=== PATIENT | female | born 1985 | race Caucasian/White ===

== ENCOUNTER 2016-05-25 11:25 | Emergency (ER) | payer OTHER ==
[~2016-05-25] VITALS: Ht 165.1 cm; Wt 81.6 kg
[~2016-05-25 11:25] MED LIST: ATARAX25 MG PO; BACTRIM DS 8001 TA1 PO; CYCLOBENZAPRINE10 MG PO; Elimite 5%60 GM T; KEFLEX500 MG PO; LOTRIMIN 1%15 GM PO; MEDROL DOSEPAK4 MG PO; MOTRIN800 MG PO; Motrin,Rufen800 MG PO; NO DAILY MEDS; NORCO 5-325 TA1 EACH PO; Orphenadrine C100 MG PO; PREDNICOT20 MG PO; ULTRAM50 MG PO
[2016-05-25 11:28] VITALS: BP 147/95
[2016-06-17] MEDS ORDERED: DOXYCYCLINE100 M3 PO (10:10)
[2016-06-17] MEDS ORDERED: PREDNISONE10 MG PO (10:10)
[2016-06-17] MEDS ORDERED: Peridex 473 ML473 ML PO (10:33)
[2016-06-19] MEDS ORDERED: IBU800 MG PO (07:35)
[2016-06-19] MEDS ORDERED: TYLENOL325 M1 PO (07:37)
== END 2016-05-25 13:58 | disposition home or self-care (01) ==
LOC: ED 11:25
DX: S22.42XD Multiple fractures of ribs, left side, subsequent encounter for fracture with routine healing (principal); F17.200 Nicotine dependence, unspecified, uncomplicated; F32.9 Major depressive disorder, single episode, unspecified; F41.9 Anxiety disorder, unspecified; Z88.2 Allergy status to sulfonamides; X58.XXXD Exposure to other specified factors, subsequent encounter

== ENCOUNTER 2016-08-11 02:39 | Emergency (ER) | payer OTHER ==
[~2016-08-11] VITALS: Ht 165.1 cm; Wt 79.4 kg
[~2016-08-11 02:39] MED LIST changes: +DOXYCYCLINE100 M3 PO; +IBU800 MG PO; +PREDNISONE10 MG PO; +Peridex 473 ML473 ML PO; +TYLENOL325 M1 PO
[2016-08-11 02:43] VITALS: BP 139/91
[2016-08-11] MEDS ORDERED: INDOMETHACIN50 MG PO (04:31)
[2016-08-11] MEDS ORDERED: VALIUM10 MG PO (04:31)
== END 2016-08-11 05:00 | disposition home or self-care (01) ==
LOC: ED 02:39
DX: M43.6 Torticollis (principal); F17.200 Nicotine dependence, unspecified, uncomplicated; F41.9 Anxiety disorder, unspecified; F32.9 Major depressive disorder, single episode, unspecified; Z88.2 Allergy status to sulfonamides

== ENCOUNTER 2016-08-22 13:19 | Emergency (ER) | payer OTHER ==
[~2016-08-22 13:19] MED LIST changes: +INDOMETHACIN50 MG PO; +VALIUM10 MG PO
[2016-08-22 13:29] VITALS: BP 157/87
[2016-08-22] MEDS ORDERED: NAPROSYN500 MG PO (13:35)
[2016-08-22] MEDS ORDERED: PENICILLIN VK500 MG PO (13:35)
[2016-08-22] MEDS ORDERED: Peridex 473 ML473 ML PO (13:35)
[2016-08-22] MEDS ORDERED: LIDOCAINE HCL100 M1 MM (13:35)
== END 2016-08-22 13:46 | disposition home or self-care (01) ==
LOC: ED 13:19
DX: K04.7 Periapical abscess without sinus (principal); R03.0 Elevated blood-pressure reading, without diagnosis of hypertension; F41.9 Anxiety disorder, unspecified; F32.9 Major depressive disorder, single episode, unspecified; F17.200 Nicotine dependence, unspecified, uncomplicated; Z88.2 Allergy status to sulfonamides

== ENCOUNTER 2017-04-30 15:12 | Emergency (ER) | payer OTHER ==
[~2017-04-30] VITALS: Wt 86.2 kg
[~2017-04-30 15:12] MED LIST changes: +LIDOCAINE HCL100 M1 MM; +NAPROSYN500 MG PO; +PENICILLIN VK500 MG PO
[2017-04-30 15:27] VITALS: BP 100/63
[2017-04-30] MEDS ORDERED: CEPHALEXIN500 M1 PO (15:41)
== END 2017-04-30 15:48 | disposition home or self-care (01) ==
LOC: ED 15:12
DX: S91.311A Laceration without foreign body, right foot, initial encounter (principal); Z88.2 Allergy status to sulfonamides; W25.XXXA Contact with sharp glass, initial encounter; Y93.89 Activity, other specified; Y92.89 Other specified places as the place of occurrence of the external cause; Y99.9 Unspecified external cause status

== ENCOUNTER 2017-06-14 15:35 | Emergency (ER) | payer OTHER ==
[~2017-06-14] VITALS: Wt 86.2 kg
[~2017-06-14 15:35] MED LIST changes: +CEPHALEXIN500 M1 PO
[2017-06-14 15:57] VITALS: BP 118/71
[2017-06-14 16:25] LABS: BILIRUBIN NEGATIVE (NEGATIVE); BLOOD 3+ (NEGATIVE); CLARITY SL CLOUDY (CLEAR); COLOR YELLOW (YELLOW); GLUCOSE NEGATIVE (NEGATIVE); KETONE TRACE (NEGATIVE); LEUKO ESTERASE NEGATIVE (NEGATIVE); NITRITE NEGATIVE (NEGATIVE); UROBILINOGEN 0.2 E.U./dl (0.2-1.0)
[2017-06-14 16:30] LABS: BASO # 0.1 10*3/uL (0.0-0.1); BASO % 0.6 % (0.0-1.0); EOS # 0.2 10*3/uL (0.0-0.4); EOS % 1.6 % (1.0-4.0); HEMATOCRIT 40.6 % (37.0-47.0); HEMOGLOBIN 13.1 g/dl (12.0-16.0); LYMPH # 3.1 10*3/uL (1.3-4.4); LYMPH % 24.3 % (27.0-41.0); MEAN CORPUSCULAR HGB 26.5 pg (27.0-31.0); MEAN CORPUSCULAR HGB CONC 32.3 g/dl (33.0-37.0); MONO # 0.6 10*3/uL (0.1-1.0); NEUT # 8.6 10*3/uL (2.3-7.9); NEUT % 68.1 % (47.0-73.0); PLATELET COUNT AUTOMATED 388 10*3/uL (130-400); RED BLOOD COUNT 4.95 10*6/uL (4.10-5.10); RED CELL DISTRI WIDTH 16.3 % (0-14.5); WHITE BLOOD COUNT 12.7 10*3/uL (4.8-10.8)
[2017-06-14 16:44] LABS: ALBUMIN 4.6 gm/dl (3.1-4.5); ALKALINE PHOSPHATASE 97 U/L (45-117); BUN 7 mg/dl (7-24); CHLORIDE 102 mmol/L (98-107); CREATININE 0.83 mg/dL (0.55-1.02); LIPASE 175 U/L (73-393); POTASSIUM 4.3 mmol/L (3.5-5.1); SGOT/AST 14 IU/L (3-35); SGPT/ALT 26 U/L (12-78); SODIUM 138 mmol/L (136-145); TOTAL PROTEIN 8.5 gm/dL (6.4-8.2)
[2017-06-14 16:46] LABS: BACTERIA 3+
[2017-06-14 16:47] LABS: EPITHELIAL CELLS 31-40; RBC 41-50 rbc/hpf (0-2)
== END 2017-06-14 18:22 | disposition home or self-care (01) ==
LOC: ED 15:35
PROVIDERS: Nurse Practitioner Family
DX: R10.11 Right upper quadrant pain (principal); F17.200 Nicotine dependence, unspecified, uncomplicated; Z88.2 Allergy status to sulfonamides

== ENCOUNTER → 2018-05-21 | Outpatient (CLI) | payer OTHER ==
[~2018-05-21] MED LIST changes: +OMEPRAZOLE40 MG PO
== END | disposition home or self-care (01) ==
LOC: US 05-11 10:30
DX: K76.0 Fatty (change of) liver, not elsewhere classified (principal); R10.84 Generalized abdominal pain

== ENCOUNTER → 2018-05-27 | Day surgery (SDC) | payer OTHER ==
[~2018-05-27] VITALS: Ht 165.1 cm; Wt 90.7 kg
--- NOTE | ~2018-05-27 | PROC NOTE ---
[place], [place] PROCEDURE NOTE NAME: JOHANA MARTINS [facility] #: [id number] UNIT #: [id number] ROOM: DOCTOR: KEAGAN LUI MD BIRTHDATE: [birth year] DOS: PROCEDURES: 1. Esophagogastroduodenoscopy and biopsy. 2. Colonoscopy and polypectomy. INDICATIONS: Abdominal pain and hematochezia. An informed consent was obtained from the patient after the indication of procedure, the alternatives, and potential complications were explained to her. PROCEDURE MEDICATION: Sedation was administered by Anesthesiology Department. SCOPE USED: Scope used was Olympus pediatric colonoscope variable stiffness GIF-180, depth of insertion with the upper endoscopy was to the descending duodenum. With the colonoscopy was to the cecum, which was identified by the usual landmarks, appendiceal orifice, ileocecal valve and triangular fold, in addition to transillumination in the right lower quadrant. FINDINGS: After adequate sedation, the patient was placed in left lateral decubitus position. The scope was introduced under direct visualization through the upper esophageal sphincter into the esophagus. Esophageal mucosa appeared normal with no ulcerations or strictures. Lower esophageal sphincter was identified at 38 cm from incisors with normal appearing Z line. Stomach was then intubated. Gastric mucosa inspected. Small antral ulcer was seen with a clean base, approximately 4 mm in maximum diameter in addition to severe gastritis. A HANNAH test was performed from a gastric antrum and body. On retroflexed views in the fundus, no hiatal hernia was seen. Pylorus was intubated easily. The duodenal bulb and descending duodenum were within normal range. Scope was then withdrawn after the stomach was decompressed. We then proceeded with the colonoscopy. Rectal examination showed a diminished sphincter tone and no external hemorrhoids. The scope was introduced into the rectum, then advanced to the cecum with no difficulty. The prep was good. A 4 mm diminutive polyp was seen in the sigmoid colon. The polyp was removed with the cold mini snare and recovered. The remaining colon mucosa was within normal range including retroflexed views in the rectum. The scope was then withdrawn after the rectum was decompressed. The patient tolerated the procedures well. IMPRESSION: 1. Small antral ulcer and gastritis, CLOtest performed. 2. Small sigmoid colon polyp, removed. 3. Normal colon mucosa otherwise. PLAN: We will review the HANNAH test and histopathology reports and treat the patient accordingly. The patient will be started on omeprazole 40 mg daily. Office followup will be scheduled in 1-2 weeks. [place], [place] PROCEDURE NOTE NAME: JOHANA MARTINS UNIT #: [id number] ROOM: DOCTOR: KEAGAN LUI MD BIRTHDATE: [birth year] KEAGAN LUI MD CM:PROCNOTE:PROCEDURE NOTE [id number] KEAGAN LUI MD
[2018-05-27 08:30] VITALS: BP 126/71
[2018-05-27 09:38] VITALS: BP 103/54
[2018-05-27 09:55] VITALS: BP 93/48
[2018-05-27 10:08] VITALS: BP 90/48
== END | disposition home or self-care (01) ==
LOC: SDC 05-26 02:47
DX: D12.5 Benign neoplasm of sigmoid colon (principal); K25.9 Gastric ulcer, unspecified as acute or chronic, without hemorrhage or perforation; K29.70 Gastritis, unspecified, without bleeding; F17.210 Nicotine dependence, cigarettes, uncomplicated; F41.9 Anxiety disorder, unspecified; F31.9 Bipolar disorder, unspecified; F12.90 Cannabis use, unspecified, uncomplicated; J45.909 Unspecified asthma, uncomplicated; E66.9 Obesity, unspecified; Z88.2 Allergy status to sulfonamides; Z98.890 Other specified postprocedural states; Z68.33 Body mass index [BMI] 33.0-33.9, adult; Z88.1 Allergy status to other antibiotic agents

== ENCOUNTER 2020-02-21 14:43 | Emergency (ER) | payer OTHER ==
[~2020-02-21] VITALS: Ht 162.5 cm; Wt 99.8 kg
[2020-02-21 14:48] VITALS: BP 122/82
== END 2020-02-21 17:45 | disposition left against medical advice (07) ==
LOC: ED 14:43
DX: M79.601 Pain in right arm (principal); Z53.21 Procedure and treatment not carried out due to patient leaving prior to being seen by health care provider

== ENCOUNTER 2021-01-01 14:02 | Emergency (ER) | payer OTHER ==
[~2021-01-01] VITALS: Wt 102.1 kg
[2021-01-01 14:07] VITALS: BP 129/68
== END 2021-01-01 15:23 | disposition home or self-care (01) ==
LOC: ED 14:02
DX: B34.9 Viral infection, unspecified (principal); Z20.822 Contact with and (suspected) exposure to COVID-19; Z88.2 Allergy status to sulfonamides; Z79.899 Other long term (current) drug therapy

== ENCOUNTER → 2021-02-19 | Outpatient (CLI) | payer OTHER ==
[2021-02-19 16:01] LABS: BASO # 0.1 10*3/uL (0.0-0.1); BASO % 0.7 % (0.0-1.0); EOS # 0.1 10*3/uL (0.0-0.4); EOS % 0.9 % (1.0-4.0); HEMATOCRIT 44.1 % (37.0-47.0); LYMPH # 2.6 10*3/uL (1.3-4.4); LYMPH % 20.7 % (27.0-41.0); MEAN CELL VOLUME 86.6 fl (81.0-99.0); MEAN CORPUSCULAR HGB 28.1 pg (27.0-31.0); MEAN CORPUSCULAR HGB CONC 32.4 g/dl (33.0-37.0); MEAN PLATELET VOLUME 10.3 fl (9.6-12.3); MONO # 0.7 10*3/uL (0.1-1.0); MONO % 5.9 % (3.0-9.0); NEUT # 8.9 10*3/uL (2.3-7.9); NEUT % 71.6 % (47.0-73.0); PLATELET COUNT AUTOMATED 428 10*3/uL (130-400); RED BLOOD COUNT 5.09 10*6/uL (4.10-5.10); RED CELL DISTRI WIDTH 13.9 % (0-14.5); WHITE BLOOD COUNT 12.4 10*3/uL (4.8-10.8)
[2021-02-19 16:13] LABS: ALBUMIN 4.3 gm/dl (3.1-4.5); ALKALINE PHOSPHATASE 114 U/L (45-117); BUN 11 mg/dl (7-24); CHLORIDE 102 mmol/L (98-107); CHOLESTEROL 189 mg/dL (<200); CREATININE 0.83 mg/dL (0.55-1.02); LDL CHOLESTEROL 129 mg/dL (9-159); POTASSIUM 4.4 mmol/L (3.5-5.1); SGOT/AST 29 IU/L (3-35); SGPT/ALT 49 U/L (12-78); SODIUM 136 mmol/L (136-145); TOTAL PROTEIN 8.5 gm/dL (6.4-8.2); TRIGLYCERIDES 112 mg/dl (<150)
[2021-02-19 16:14] LABS: FREE T4 0.88 ng/dl (0.76-1.46)
== END | disposition home or self-care (01) ==
LOC: LAB 15:34
PROVIDERS: ATTEND Family Medicine
DX: J44.9 Chronic obstructive pulmonary disease, unspecified (principal); E88.81 Metabolic syndrome and other insulin resistance

== ENCOUNTER 2021-08-26 06:13 | Emergency (ER) | payer OTHER ==
[~2021-08-26] VITALS: Ht 167.6 cm; Wt 86.2 kg
[2021-08-26 06:20] VITALS: BP 121/82
[2021-08-26] MEDS ORDERED: NAPROXEN250 MG PO (06:24)
== END 2021-08-26 06:27 | disposition home or self-care (01) ==
LOC: ED 06:13
DX: G56.01 Carpal tunnel syndrome, right upper limb (principal); Z88.2 Allergy status to sulfonamides; Z79.899 Other long term (current) drug therapy

== ENCOUNTER 2021-09-26 20:17 | Emergency (ER) | payer OTHER ==
[~2021-09-26] VITALS: Ht 162.5 cm; Wt 90.7 kg
[~2021-09-26 20:17] MED LIST changes: +NAPROXEN250 MG PO
[2021-09-26 20:54] LABS: BASO # 0.1 10*3/uL (0.0-0.1); BASO % 0.7 % (0.0-1.0); EOS # 0.3 10*3/uL (0.0-0.4); EOS % 2.5 % (1.0-4.0); HEMATOCRIT 40.1 % (37.0-47.0); LYMPH # 3.6 10*3/uL (1.3-4.4); LYMPH % 31.7 % (27.0-41.0); MEAN CELL VOLUME 86.4 fl (81.0-99.0); MEAN CORPUSCULAR HGB 28.7 pg (27.0-31.0); MEAN CORPUSCULAR HGB CONC 33.2 g/dl (33.0-37.0); MEAN PLATELET VOLUME 9.7 fl (9.6-12.3); MONO # 0.8 10*3/uL (0.1-1.0); MONO % 7.1 % (3.0-9.0); NEUT # 6.6 10*3/uL (2.3-7.9); NEUT % 57.6 % (47.0-73.0); PLATELET COUNT AUTOMATED 414 10*3/uL (130-400); RED BLOOD COUNT 4.64 10*6/uL (4.10-5.10); RED CELL DISTRI WIDTH 13.4 % (0-14.5); WHITE BLOOD COUNT 11.4 10*3/uL (4.8-10.8)
[2021-09-26 21:10] LABS: CREATININE 1.24 mg/dL (0.55-1.02); POTASSIUM 3.8 mmol/L (3.5-5.1); TOTAL PROTEIN 7.7 gm/dL (6.4-8.2)
[2021-09-26 21:33] LABS: BILIRUBIN Negative (Negative); BLOOD 1+ (Negative); CLARITY Turbid (Clear); COLOR Yellow (Yellow); GLUCOSE Negative (Negative); KETONE Trace (Negative); LEUKO ESTERASE 2+ (Negative); NITRITE Negative (Negative); PH 6.5 (4.5-8.0); SPECIFIC GRAVITY >= 1.030 (1.001-1.030)
[2021-09-26 21:36] VITALS: BP 124/83
[2021-09-26 21:49] LABS: BACTERIA 2+; EPITHELIAL CELLS TNTC; WBC 16-20 wbc/hpf (0-5)
== END 2021-09-26 23:25 | disposition home or self-care (01) ==
LOC: ED 20:17
PROVIDERS: Nurse Practitioner Family
DX: F41.9 Anxiety disorder, unspecified (principal); R06.2 Wheezing; R06.02 Shortness of breath; R07.9 Chest pain, unspecified; F17.200 Nicotine dependence, unspecified, uncomplicated; Z88.2 Allergy status to sulfonamides

== ENCOUNTER 2021-11-11 23:22 | Emergency (ER) | payer OTHER ==
[2021-11-11 23:54] VITALS: BP 124/88
[2021-11-12] MEDS ORDERED: HYDROCODON-ACE1 EACH PO (01:31)
[2021-11-12] MEDS ORDERED: CYCLOBENZAPRINE10 MG PO (01:31)
[2021-11-12] MEDS ORDERED: PREDNISONE20 M1 PO (01:31)
== END 2021-11-12 02:23 | disposition home or self-care (01) ==
LOC: ED 23:22
DX: S39.012A Strain of muscle, fascia and tendon of lower back, initial encounter (principal); G58.9 Mononeuropathy, unspecified; Z88.2 Allergy status to sulfonamides; X50.0XXA Overexertion from strenuous movement or load, initial encounter; Y93.89 Activity, other specified; Y92.89 Other specified places as the place of occurrence of the external cause; Y99.8 Other external cause status

== ENCOUNTER 2021-12-12 23:15 | Emergency (ER) | payer OTHER ==
[~2021-12-12] VITALS: Ht 162.5 cm; Wt 90.7 kg
[~2021-12-12 23:15] MED LIST changes: +HYDROCODON-ACE1 EACH PO; +PREDNISONE20 M1 PO
[2021-12-13] MEDS ORDERED: PREDNISONE20 M1 PO (00:03)
== END 2021-12-13 00:35 | disposition home or self-care (01) ==
LOC: ED 23:15
DX: M25.521 Pain in right elbow (principal); M79.631 Pain in right forearm; R20.2 Paresthesia of skin; R20.0 Anesthesia of skin; Z88.2 Allergy status to sulfonamides; Z79.899 Other long term (current) drug therapy; Z96.22 Myringotomy tube(s) status; X50.9XXA Other and unspecified overexertion or strenuous movements or postures, initial encounter; Y93.89 Activity, other specified; Y92.89 Other specified places as the place of occurrence of the external cause; Y99.8 Other external cause status

== ENCOUNTER 2022-09-07 18:15 | Emergency (ER) | payer MEDICAID ==
[~2022-09-07] VITALS: Ht 175.2 cm; Wt 90.7 kg
[2022-09-07 19:00] VITALS: BP 140/78
[2022-09-07 19:05] LABS: BASO # 0.1 10*3/uL (0.0-0.1); BASO % 0.6 % (0.0-1.0); EOS # 0.3 10*3/uL (0.0-0.4); EOS % 2.5 % (1.0-4.0); HEMATOCRIT 38.2 % (37.0-47.0); LYMPH # 2.6 10*3/uL (1.3-4.4); LYMPH % 24.4 % (27.0-41.0); MEAN CELL VOLUME 90.7 fl (81.0-99.0); MEAN CORPUSCULAR HGB 29.5 pg (27.0-31.0); MEAN CORPUSCULAR HGB CONC 32.5 g/dl (33.0-37.0); MEAN PLATELET VOLUME 10.4 fl (9.6-12.3); MONO # 0.7 10*3/uL (0.1-1.0); MONO % 6.5 % (3.0-9.0); NEUT % 65.8 % (47.0-73.0); PLATELET COUNT AUTOMATED 266 10*3/uL (130-400); RED BLOOD COUNT 4.21 10*6/uL (4.10-5.10); RED CELL DISTRI WIDTH 13.5 % (0-14.5); WHITE BLOOD COUNT 10.6 10*3/uL (4.8-10.8)
[2022-09-07 19:21] LABS: ALKALINE PHOSPHATASE 74 U/L (46-116); BUN 8 mg/dl (9-23); CHLORIDE 107 mmol/L (98-107); POTASSIUM 4.1 mmol/L (3.4-5.1); SGPT/ALT 25 U/L (10-49); TOTAL PROTEIN 6.2 gm/dL (6.0-8.0)
[2022-09-07 20:31] LABS: BILIRUBIN Negative (Negative); BLOOD 1+ (Negative); CLARITY Cloudy (Clear); COLOR Yellow (Yellow); GLUCOSE Negative (Negative); KETONE Trace (Negative); LEUKO ESTERASE 2+ (Negative); NITRITE Negative (Negative); SPECIFIC GRAVITY 1.025 (1.001-1.030)
[2022-09-07 20:52] LABS: BACTERIA 2+; EPITHELIAL CELLS 16-20
[2022-09-07] MEDS ORDERED: ONDANSETRON4 MG SL (21:00)
== END 2022-09-07 21:20 | disposition home or self-care (01) ==
LOC: ED 18:15
PROVIDERS: Nurse Practitioner Family
DX: R11.2 Nausea with vomiting, unspecified (principal); R19.7 Diarrhea, unspecified; J45.909 Unspecified asthma, uncomplicated; F41.9 Anxiety disorder, unspecified; F31.9 Bipolar disorder, unspecified; Z88.2 Allergy status to sulfonamides; Z98.890 Other specified postprocedural states; Z79.899 Other long term (current) drug therapy

== ENCOUNTER 2022-12-22 11:09 | Emergency (ER) | payer MEDICAID ==
[~2022-12-22] VITALS: Ht 165.1 cm; Wt 90.7 kg
[~2022-12-22 11:09] MED LIST changes: +ONDANSETRON4 MG SL
[2022-12-22 11:21] VITALS: BP 113/59
[2022-12-22 12:22] LABS: BASO # 0.1 10*3/uL (0.0-0.1); BASO % 0.7 % (0.0-1.0); EOS # 0.3 10*3/uL (0.0-0.4); EOS % 2.5 % (1.0-4.0); HEMATOCRIT 39.2 % (37.0-47.0); LYMPH # 2.7 10*3/uL (1.3-4.4); LYMPH % 21.6 % (27.0-41.0); MEAN CELL VOLUME 87.1 fl (81.0-99.0); MEAN CORPUSCULAR HGB 28.7 pg (27.0-31.0); MEAN CORPUSCULAR HGB CONC 32.9 g/dl (33.0-37.0); MEAN PLATELET VOLUME 10.6 fl (9.6-12.3); MONO # 0.4 10*3/uL (0.1-1.0); MONO % 2.9 % (3.0-9.0); NEUT # 8.8 10*3/uL (2.3-7.9); NEUT % 71.9 % (47.0-73.0); PLATELET COUNT AUTOMATED 286 10*3/uL (130-400); RED CELL DISTRI WIDTH 13.6 % (0-14.5); WHITE BLOOD COUNT 12.3 10*3/uL (4.8-10.8)
[2022-12-22 12:44] LABS: ALKALINE PHOSPHATASE 81 U/L (46-116); BUN 10 mg/dl (9-23); CHLORIDE 105 mmol/L (98-107); SGPT/ALT 18 U/L (10-49)
[2022-12-22 13:09] LABS: BILIRUBIN Negative (Negative); BLOOD 1+ (Negative); CLARITY Clear (Clear); COLOR Yellow (Yellow); GLUCOSE Negative (Negative); KETONE Trace (Negative); LEUKO ESTERASE Negative (Negative); NITRITE Negative (Negative); SPECIFIC GRAVITY 1.025 (1.001-1.030); UROBILINOGEN 0.2 E.U./dl (0.0-1.0)
[2022-12-22 13:20] LABS: BACTERIA 1+; MUCOUS 1+; RBC 21-30 rbc/hpf (0-2); WBC 0-2 wbc/hpf (0-5)
== END 2022-12-22 13:59 | disposition home or self-care (01) ==
LOC: ED 11:09
PROVIDERS: Physician Assistant Medical
DX: R51.9 Headache, unspecified (principal); J45.909 Unspecified asthma, uncomplicated; F41.9 Anxiety disorder, unspecified; F31.9 Bipolar disorder, unspecified; Z88.2 Allergy status to sulfonamides; Z79.899 Other long term (current) drug therapy

== ENCOUNTER 2023-06-23 08:03 | Emergency (ER) | payer OTHER ==
[~2023-06-23] VITALS: Ht 165.1 cm; Wt 77.1 kg
[~2023-06-23 08:03] MED LIST changes: +PREDNISONE50 MG PO; +ZITHROMAX250 MG PO
[2023-06-23 08:19] VITALS: BP 128/78
[2023-06-23] MEDS ORDERED: MG-AL HYDROXIDE/SIMETICONE 30 ML UDC PO STA (08:38)
[2023-06-23] MEDS ORDERED: Lidocaine Hydrochloride 15 ML UDC PO STA (08:38)
[2023-06-23] MEDS ORDERED: Dicyclomine Hydrochloride 20 MG/10 ML OSYR PO STA (08:38)
[2023-06-23] MEDS ORDERED: FAMOTIDINE 50 ML IV ONE (08:40)
[2023-06-23] MEDS ORDERED: SODIUM CHLORIDE 0.9% 1,000 ML IV ONE (08:40)
[2023-06-23 09:05] LABS: BILIRUBIN Negative (Negative); BLOOD Trace-Lysed (Negative); CLARITY Clear (Clear); COLOR Yellow (Yellow); GLUCOSE Negative (Negative); KETONE Negative (Negative); LEUKO ESTERASE Negative (Negative); NITRITE Negative (Negative); PH 6.5 (4.5-8.0); SPECIFIC GRAVITY <= 1.005 (1.001-1.030); UROBILINOGEN 0.2 E.U./dl (0.0-1.0)
[2023-06-23 09:06] LABS: BASO # 0.1 10*3/uL (0.0-0.1); BASO % 0.5 % (0.0-1.0); EOS # 0.2 10*3/uL (0.0-0.4); HEMATOCRIT 44.4 % (37.0-47.0); MEAN CELL VOLUME 88.4 fl (81.0-99.0); MEAN CORPUSCULAR HGB 27.9 pg (27.0-31.0); MEAN CORPUSCULAR HGB CONC 31.5 g/dl (33.0-37.0); MEAN PLATELET VOLUME 9.8 fl (9.6-12.3); MONO # 0.6 10*3/uL (0.1-1.0); MONO % 5.4 % (3.0-9.0); NEUT # 8.6 10*3/uL (2.3-7.9); NEUT % 74.8 % (47.0-73.0); PLATELET COUNT AUTOMATED 395 10*3/uL (130-400); RED BLOOD COUNT 5.02 10*6/uL (4.10-5.10); RED CELL DISTRI WIDTH 13.9 % (0-14.5); WHITE BLOOD COUNT 11.5 10*3/uL (4.8-10.8)
[2023-06-23 09:12] LABS: URINE AMPHETAMINES Negative (1000ng/ml); URINE BARBITURATES Negative (200ng/ml); URINE BENZODIAZEPINES Negative (200ng/ml); URINE CANNABINOIDS (THC) Positive (50ng/ml); URINE COCAINE Negative (300ng/ml); URINE METHADONE Negative (300ng/ml); URINE OPIATES Negative (300ng/ml); URINE PHENCYCLIDINE Negative (25ng/ml)
[2023-06-23 09:28] LABS: ALKALINE PHOSPHATASE 97 U/L (46-116); BUN 7 mg/dl (9-23); CHLORIDE 104 mmol/L (98-107); LIPASE 31 U/L (12-53); POTASSIUM 3.7 mmol/L (3.4-5.1); SGPT/ALT 16 U/L (5-49); TOTAL PROTEIN 8.1 gm/dL (6.0-8.0)
[2023-06-23 09:30] LABS: BETA-HCG, QUANT < 3.0 mIU/mL (3-10)
[2023-06-23] MEDS ORDERED: ONDANSETRON4 MG SL (10:35)
[2023-06-23] MEDS ORDERED: PEPCID20 MG PO (10:35)
== END 2023-06-23 10:45 | disposition home or self-care (01) ==
LOC: ED 08:03
PROVIDERS: Emergency Medicine
DX: K52.9 Noninfective gastroenteritis and colitis, unspecified (principal); R11.2 Nausea with vomiting, unspecified; J45.909 Unspecified asthma, uncomplicated; F41.9 Anxiety disorder, unspecified; F31.9 Bipolar disorder, unspecified; R10.2 Pelvic and perineal pain; Z88.2 Allergy status to sulfonamides; Z98.890 Other specified postprocedural states; Z79.899 Other long term (current) drug therapy

== ENCOUNTER 2023-07-31 12:18 | Emergency (ER) | payer OTHER ==
[~2023-07-31] VITALS: Ht 165.1 cm; Wt 77.1 kg
[~2023-07-31 12:18] MED LIST changes: +PEPCID20 MG PO
[2023-07-31 12:34] VITALS: BP 116/59
[2023-07-31] MEDS ORDERED: BUPRENORPHINE-1 EAC1 SL (13:24)
[2023-07-31 13:49] LABS: BASO # 0.1 10*3/uL (0.0-0.1); BASO % 0.7 % (0.0-1.0); EOS # 0.3 10*3/uL (0.0-0.4); EOS % 2.8 % (1.0-4.0); LYMPH # 2.7 10*3/uL (1.3-4.4); LYMPH % 22.4 % (27.0-41.0); MEAN CORPUSCULAR HGB 28.8 pg (27.0-31.0); MEAN CORPUSCULAR HGB CONC 32.3 g/dl (33.0-37.0); MEAN PLATELET VOLUME 9.5 fl (9.6-12.3); MONO # 0.8 10*3/uL (0.1-1.0); MONO % 6.5 % (3.0-9.0); NEUT # 8.1 10*3/uL (2.3-7.9); NEUT % 67.2 % (47.0-73.0); PLATELET COUNT AUTOMATED 339 10*3/uL (130-400); RED BLOOD COUNT 4.38 10*6/uL (4.10-5.10); RED CELL DISTRI WIDTH 13.5 % (0-14.5)
[2023-07-31 14:09] LABS: BILIRUBIN Negative (Negative); BLOOD 1+ (Negative); CLARITY Clear (Clear); COLOR Yellow (Yellow); GLUCOSE Negative (Negative); KETONE Trace (Negative); LEUKO ESTERASE Negative (Negative); NITRITE Negative (Negative); PH 5.5 (4.5-8.0); SPECIFIC GRAVITY 1.025 (1.001-1.030)
[2023-07-31 14:11] LABS: BUN 9 mg/dl (9-23); CHLORIDE 103 mmol/L (98-107); POTASSIUM 4.1 mmol/L (3.4-5.1)
[2023-07-31 14:29] LABS: MUCOUS TRACE
[2023-07-31] MEDS ORDERED: CYCLOBENZAPRINE5 M3 PO (15:41)
== END 2023-07-31 16:01 | disposition home or self-care (01) ==
LOC: ED 12:18
PROVIDERS: Internal Medicine
DX: M62.830 Muscle spasm of back (principal); M54.50 Low back pain, unspecified; F17.210 Nicotine dependence, cigarettes, uncomplicated; Z88.2 Allergy status to sulfonamides; Z79.899 Other long term (current) drug therapy; Z79.2 Long term (current) use of antibiotics; Z96.22 Myringotomy tube(s) status

== ENCOUNTER 2023-12-21 17:31 | Emergency (ER) | payer OTHER ==
[~2023-12-21] VITALS: Ht 165.1 cm; Wt 72.6 kg
[~2023-12-21 17:31] MED LIST changes: +BUPRENORPHINE-1 EAC1 SL; +CYCLOBENZAPRINE5 M3 PO
[2023-12-21 17:48] VITALS: BP 114/59
[2023-12-21 18:50] LABS: BASO # 0.1 10*3/uL (0.0-0.1); BASO % 0.7 % (0.0-1.0); EOS # 0.2 10*3/uL (0.0-0.4); EOS % 2.6 % (1.0-4.0); HEMATOCRIT 38.8 % (37.0-47.0); LYMPH # 2.5 10*3/uL (1.3-4.4); MEAN CELL VOLUME 89.2 fl (81.0-99.0); MEAN CORPUSCULAR HGB 28.7 pg (27.0-31.0); MEAN CORPUSCULAR HGB CONC 32.2 g/dl (33.0-37.0); MEAN PLATELET VOLUME 9.9 fl (9.6-12.3); MONO # 0.5 10*3/uL (0.1-1.0); MONO % 5.9 % (3.0-9.0); NEUT # 5.3 10*3/uL (2.3-7.9); NEUT % 61.5 % (47.0-73.0); PLATELET COUNT AUTOMATED 311 10*3/uL (130-400); RED BLOOD COUNT 4.35 10*6/uL (4.10-5.10); RED CELL DISTRI WIDTH 13.4 % (0-14.5); WHITE BLOOD COUNT 8.6 10*3/uL (4.8-10.8)
[2023-12-21 19:14] LABS: BUN 11 mg/dl (9-23); CHLORIDE 108 mmol/L (98-107); POTASSIUM 3.8 mmol/L (3.4-5.1)
[2023-12-21 19:21] LABS: BILIRUBIN Negative (Negative); BLOOD 3+ (Negative); CLARITY Turbid (Clear); COLOR Yellow (Yellow); GLUCOSE Negative (Negative); KETONE Trace (Negative); LEUKO ESTERASE Trace (Negative); NITRITE Negative (Negative); SPECIFIC GRAVITY 1.025 (1.001-1.030)
[2023-12-21 19:42] LABS: BACTERIA 1+; EPITHELIAL CELLS 21-30; MUCOUS 1+; RBC 16-20 rbc/hpf (0-2)
[2023-12-21] MEDS ORDERED: Ondansetron4 MG PO (21:41)
== END 2023-12-21 21:26 | disposition home or self-care (01) ==
LOC: ED 17:31
PROVIDERS: Physician Assistant Medical
DX: R10.84 Generalized abdominal pain (principal); M54.9 Dorsalgia, unspecified; R11.2 Nausea with vomiting, unspecified; Z88.2 Allergy status to sulfonamides; Z79.899 Other long term (current) drug therapy; Z96.22 Myringotomy tube(s) status

== ENCOUNTER 2024-01-27 09:04 | Emergency (ER) | payer OTHER ==
[~2024-01-27] VITALS: Ht 165.1 cm; Wt 72.6 kg
[~2024-01-27 09:04] MED LIST changes: +Ondansetron4 MG PO
[2024-01-27 09:13] VITALS: BP 123/76
[2024-01-27] MEDS ORDERED: BREYNA 160-4.10.3 GM INH (09:16)
[2024-01-27] MEDS ORDERED: Motrin,Rufen800 MG PO (09:22)
[2024-01-27] MEDS ORDERED: IBUPROFEN 800 MG TAB PO ONE (09:25)
[2024-01-27] MEDS ORDERED: Acetaminophen/Oxycodone 5 MG/325 MG TABLET PO ONE (09:25)
[2024-02-01] MEDS ORDERED: VENT7GM INH (11:56)
[2024-02-01] MEDS ORDERED: SYMB160 INH (11:57)
== END 2024-01-27 09:36 | disposition home or self-care (01) ==
LOC: ED 09:04
DX: G89.29 Other chronic pain (principal); M25.512 Pain in left shoulder; F41.9 Anxiety disorder, unspecified; J44.9 Chronic obstructive pulmonary disease, unspecified; F31.9 Bipolar disorder, unspecified; F12.90 Cannabis use, unspecified, uncomplicated; Z88.2 Allergy status to sulfonamides; Z98.890 Other specified postprocedural states

== ENCOUNTER → 2024-02-04 | Outpatient (CLI) | payer OTHER ==
[~2024-02-04] MED LIST changes: +BREYNA 160-4.10.3 GM INH; +SYMB160 INH; +VENT7GM INH
== END | disposition home or self-care (01) ==
LOC: RAD 10:03
PROVIDERS: ATTEND Nurse Practitioner
DX: M19.012 Primary osteoarthritis, left shoulder (principal); M25.512 Pain in left shoulder

== ENCOUNTER 2024-02-15 06:24 | Emergency (ER) | payer OTHER ==
[~2024-02-15] VITALS: Ht 165.1 cm; Wt 74.8 kg
[2024-02-15 06:38] VITALS: BP 145/87
[2024-02-15 07:00] LABS: BASO # 0.1 10*3/uL (0.0-0.1); BASO % 0.7 % (0.0-1.0); EOS # 0.3 10*3/uL (0.0-0.4); EOS % 2.7 % (1.0-4.0); HEMATOCRIT 41.4 % (37.0-47.0); LYMPH # 3.1 10*3/uL (1.3-4.4); LYMPH % 24.5 % (27.0-41.0); MEAN CELL VOLUME 87.3 fl (81.0-99.0); MEAN CORPUSCULAR HGB 29.1 pg (27.0-31.0); MEAN CORPUSCULAR HGB CONC 33.3 g/dl (33.0-37.0); MEAN PLATELET VOLUME 9.8 fl (9.6-12.3); MONO % 7.8 % (3.0-9.0); NEUT # 8.1 10*3/uL (2.3-7.9); PLATELET COUNT AUTOMATED 421 10*3/uL (130-400); RED BLOOD COUNT 4.74 10*6/uL (4.10-5.10); WHITE BLOOD COUNT 12.7 10*3/uL (4.8-10.8)
[2024-02-15 07:07] LABS: BILIRUBIN Negative (Negative); BLOOD 2+ (Negative); CLARITY Clear (Clear); COLOR Yellow (Yellow); GLUCOSE Negative (Negative); KETONE Negative (Negative); LEUKO ESTERASE Negative (Negative); NITRITE Negative (Negative); PH 5.5 (4.5-8.0); SPECIFIC GRAVITY >= 1.030 (1.001-1.030)
[2024-02-15 07:15] LABS: URINE AMPHETAMINES Positive (1000ng/ml); URINE BARBITURATES Negative (200ng/ml); URINE BENZODIAZEPINES Negative (200ng/ml); URINE CANNABINOIDS (THC) Positive (50ng/ml); URINE COCAINE Negative (300ng/ml); URINE METHADONE Negative (300ng/ml); URINE OPIATES Negative (300ng/ml); URINE PHENCYCLIDINE Negative (25ng/ml)
[2024-02-15 07:17] LABS: BUN 18 mg/dl (9-23); CHLORIDE 103 mmol/L (98-107); CPK 196 U/L (34-171); POTASSIUM 3.6 mmol/L (3.4-5.1)
[2024-02-15 07:35] LABS: RBC 16-20 rbc/hpf (0-2)
== END 2024-02-15 09:55 | disposition home or self-care (01) ==
LOC: ED 06:24
PROVIDERS: Internal Medicine
DX: R00.2 Palpitations (principal); T43.622A Poisoning by amphetamines, intentional self-harm, initial encounter; J45.909 Unspecified asthma, uncomplicated; F41.9 Anxiety disorder, unspecified; F12.90 Cannabis use, unspecified, uncomplicated; F31.9 Bipolar disorder, unspecified; J44.9 Chronic obstructive pulmonary disease, unspecified; Z88.2 Allergy status to sulfonamides; Z98.890 Other specified postprocedural states; Y92.009 Unspecified place in unspecified non-institutional (private) residence as the place of occurrence of the external cause

== ENCOUNTER 2024-07-09 21:54 | Emergency (ER) | payer OTHER ==
[~2024-07-09] VITALS: Ht 165.1 cm; Wt 72.6 kg
[2024-07-09 22:14] VITALS: BP 153/111
[2024-07-09] MEDS ORDERED: traMADol Hydrochloride 50 MG TAB PO ONE (22:25)
[2024-07-09] MEDS ORDERED: MELOXICAM15 MG PO (23:55)
== END 2024-07-10 00:05 | disposition home or self-care (01) ==
LOC: ED 21:54
DX: M54.50 Low back pain, unspecified (principal); J45.909 Unspecified asthma, uncomplicated; F31.9 Bipolar disorder, unspecified; F41.9 Anxiety disorder, unspecified; J44.9 Chronic obstructive pulmonary disease, unspecified; F17.200 Nicotine dependence, unspecified, uncomplicated; Z79.899 Other long term (current) drug therapy; Z88.2 Allergy status to sulfonamides